=== PATIENT | female | born 1935 | race Caucasian/White ===

== ENCOUNTER 2018-09-29 21:26 | Emergency (ER) | payer MEDICARE ==
[~2018-09-29] VITALS: Ht 165.1 cm; Wt 68.0 kg
[2018-09-29] MEDS ORDERED: CEPH250T PO (23:16)
[2018-09-29 23:32] VITALS: BP 140/94
== END 2018-09-29 23:34 | disposition home or self-care (01) ==
LOC: ER 21:27
DX: M70.22 Olecranon bursitis, left elbow (principal); Z79.2 Long term (current) use of antibiotics; Y93.89 Activity, other specified
CPT/HCPCS: 99283